=== PATIENT | male | born 2000 | race Caucasian/White ===

== ENCOUNTER 2019-07-08 01:05 | Emergency (ER) | payer OTHER, MEDICAID ==
[2019-07-08 02:51] LABS: ABS Lymphocytes 1.5 10^3/ul (1.0-4.8); ABS Monocytes 0.6 10^3/ul (0-0.8); Eosinophil % 0.4 %; Hematocrit 50 % (42-52); Hemoglobin 17.2 g/dL (14.0-18.0); Lymphocyte % 16.7 %; Mean Corpuscular HGB Conc 34 g/dL (31-36); Mean Corpuscular Hemoglobin 29 pg (27-31); Mean Corpuscular Volume 85 fL (80-94); Mean Platelet Volume 9.8 fL (7.4-10.4); Nucleated Red Blood Cells % 0.1; Platelet Count 199 10^3/uL (150-450); Red Cell Distribution Width 14 % (10-15); White Blood Count 9.2 10^3/uL (3.5-10.8)
[2019-07-08 03:08] LABS: Albumin 4.9 g/dL (3.2-5.2); Albumin/Globulin Ratio 1.8 (1-3); BUN/Creatinine Ratio 15.2 (8-20); Calcium 9.5 mg/dL (8.6-10.3); EGFR African American 128.2 (>60); Globulin 2.7 g/dL (2-4); Potassium 3.7 mmol/L (3.5-5.0); Total Bilirubin 1.6 mg/dL (0.2-1.0); Total Protein 7.6 g/dL (6.4-8.9)
--- NOTE | 2019-07-08 03:49 | ED ---
HPI Chest Pain - HPI Summary HPI Summary: 18 year old M presenting to [facility] complains of chest pain described as tightness rated 3/10 in severity since 21:00 today while lying in bed. Denies fever, cough, nausea, vomiting, diarrhea. Patient states he is not anxious or feeling sick. Symptoms aggravated by inspiration and upright position. Symptoms alleviated by putting pressure on his left chest. Patient states he does not take any medications. PMHx: asthma, dilated aortic root (both as a young child) . Denies alcohol, drugs, and smoking. Fhx: cancer. - History of Current Complaint Chief Complaint: EDChestPainROMI Time Seen by Provider: 07/08/19 02:51 Hx Obtained From: Patient Onset/Duration: Started Hours Ago, Still Present Timing: Constant Current Severity: Mild Pain Intensity: 3 Pain Scale Used: 0-10 Numeric Character: Tightness Aggravating Factor(s): Other: - inspiration and upright position Associated Signs and Symptoms: Positive: Negative - fever, cough, nausea, vomiting, diarrhea - Allergy/Home Medications Allergies/Adverse Reactions: Allergies Allergy/AdvReac Type Severity Reaction Status Date / Time No Known Allergies Allergy Verified 07/08/19 03:11 Home Medications: Home Medications NK [No Home Medications Reported] 07/08/19 [History Confirmed 07/08/19] PMH/Surg Hx/FS Hx/Imm Hx Cardiovascular History: Reports: Other Cardiovascular Problems/Disorders - dilated aortic root Respiratory History: Reports: Hx Asthma Infectious Disease History: No Infectious Disease History: Denies: Traveled Outside the [place] in Last 30 Days - Family History Known Family History: Positive: Other - cancer - Social History Alcohol Use: None Hx Substance Use: No Substance Use Type: Reports: None Hx Tobacco Use: No Smoking Status (MU): Never Smoked Tobacco Review of Systems - ROS Summary Review of Systems Summary: Home Medications Medication Instructions Recorded Confirmed Type NK [No Home Medications Reported] 07/08/19 07/08/19 History Negative: Fever Positive: Chest Pain Negative: Cough Negative: Vomiting, Diarrhea, Nausea All Other Systems Reviewed And Are Negative: Yes Physical Exam - Summary Physical Exam Summary: General: Well-developed, Well-nourished MALE. No acute distress. HEENT: Normocephalic, Atraumatic. Eyes: Conjuctiva normal, PERRL. Ears: TMs within normal limits. Nares: (-) discharge, (-) erythema. Oropharynx: Clear, mucous membranes moist, (-) exudates. Neck: Soft, FROM, (-) lymphadenopathy, (-) thyromegaly, (-) JVD. Cardiovascular: Normal sinus rhythm, (-) murmur. Lungs: Clear to auscultation bilaterally (-) wheezes, (-) rales, (-) rhonchi. Abdomen: Soft, non-tender, non-distended, (-) organomegaly, normal bowel sounds. Back: (-) CVA tenderness Extremities: No edema. Skin: Warm, dry, (-) rash. Neuro: Alert and oriented x3, no focal deficits. Psychiatric: Mood normal, affect normal. Triage Information Reviewed: Yes Vital Signs On Initial Exam: Initial Vitals Temp Pulse Resp BP Pulse Ox 99.1 F 101 18 142/95 99 07/08/19 01:11 07/08/19 01:11 07/08/19 01:11 07/08/19 01:11 07/08/19 01:11 Vital Signs Reviewed: Yes Diagnostics - Vital Signs Vital Signs Temp Pulse Resp BP Pulse Ox 07/08/19 01:11 99.1 F 101 18 142/95 99 - Laboratory Lab Results: Lab Results 07/08/19 07/08/19 07/08/19 Range/Units 02:44 02:44 02:44 WBC 9.2 (3.5-10.8) 10^3/uL RBC 5.90 H (4.18-5.48) 10^6 /uL Hgb 17.2 (14.0-18.0) g/dL Hct 50 (42-52) % MCV 85 (80-94) fL MCH 29 (27-31) pg MCHC 34 (31-36) g/dL RDW 14 (10-15) % Plt Count 199 (150-450) 10^3/uL MPV 9.8 (7.4-10.4) fL Neut % (Auto) 76.3 % Lymph % (Auto) 16.7 % [place] % (Auto) 6.4 % Eos % (Auto) 0.4 % Baso % (Auto) 0.2 % Absolute Neuts (auto) 7.0 (1.5-7.7) 10^3/ul Absolute Lymphs (auto) 1.5 (1.0-4.8) 10^3/ul Absolute Monos (auto) 0.6 (0-0.8) 10^3/ul Absolute Eos (auto) 0.0 (0-0.6) 10^3/ul Absolute Basos (auto) 0.0 (0-0.2) 10^3/ul Absolute Nucleated RBC 0.0 10^3/ul Nucleated RBC % 0.1 INR (Anticoag Therapy) 1.00 (0.82-1.09) D-Dimer, Quantitative < 200 (Less Than 230) ng/mL Sodium 140 (135-145) mmol/L Potassium 3.7 (3.5-5.0) mmol/L Chloride 108 (101-111) mmol/L Carbon Dioxide 26 (22-32) mmol/L Anion Gap 6 (2-11) mmol/L BUN 14 (6-24) mg/dL Creatinine 0.92 (0.67-1.17) mg/dL Est GFR ( Amer) 128.2 (>60) Est GFR (Non-Af Amer) 106.0 (>60) BUN/Creatinine Ratio 15.2 (8-20) Glucose 123 H (70-100) mg/dL Calcium 9.5 (8.6-10.3) mg/dL Total Bilirubin 1.60 H (0.2-1.0) mg/dL AST 17 (13-39) U/L ALT 15 (7-52) U/L Alkaline Phosphatase 57 (34-104) U/L Troponin I 0.00 (<0.04) ng/mL Total Protein 7.6 (6.4-8.9) g/dL Albumin 4.9 (3.2-5.2) g/dL Globulin 2.7 (2-4) g/dL Albumin/Globulin Ratio 1.8 (1-3) Result Diagrams: 07/08/19 02:44 07/08/19 02:44 Lab Statement: Any lab studies that have been ordered have been reviewed, and results considered in the medical decision making process. - Radiology CXR Radiology Interpretation Completed By: ED Physician Summary of Radiographic Findings: No acute process. Pending official report - EKG 0108 Cardiac Rate: Tachycardia - 102 BPM EKG Rhythm: Sinus Tachycardia Summary of EKG Findings: EKG at 01:08 reveals normal sinus tachycardia with rate of 102 BPM, no acute changes, no ischemic changes. This EKG was reviewed and interpreted by Dr. Vega. Re-Evaluation - Re-Evaluation First Eval Re-Evaluation Time: 05:23 Comment: I have discussed results with the patient and his symptoms have resolved. Discussed symptoms that warrant immediate return to ED Chest Pain Course/Dx - Course Course Of Treatment: 18 year old M presenting to [facility] complains of chest pain described as tightness rated 3/10 in severity since 21:00 today while lying in bed. Physical exam findings: unremarkable. EKG at 01:08 reveals normal sinus tachycardia with rate of 102 BPM, no acute changes, no ischemic changes. This EKG was reviewed and interpreted by Dr. Vega. CXR shows no acute process. Bloodwork results with no significant abnormalities except for RBC 5.90, glucose 123, and total bilirubin 1.60. The patient will be discharged home with recommendations to use ibuprofen and ice to manage the pain. He was instructed to follow up with [facility] in 3 days. Patient was instructed to return to Emergency Department for new or worsening symptoms. Patient understands and is agreeable to this plan. - Diagnoses Provider Diagnoses: Chest pain Discharge ED - Sign-Out/Discharge Documenting (check all that apply): Patient Departure - Discharge Patient Received Moderate/Deep Sedation with Procedure: No - Discharge Plan Condition: Stable Disposition: HOME Patient Education Materials: Chest Pain (ED) Referrals: Care [facility] [Outside] - 3 Days Additional Instructions: Use ibuprofen and ice. Please follow up with [facility] within 3 days. Please return to Emergency Department for any new or worsening symptoms - Billing Disposition and Condition Condition: STABLE Disposition: Home - Attestation Statements Document Initiated by Scribe: Yes Documenting Scribe: Irina Robert Provider For Whom Jon is Documenting (Include Credential): Mayela Vega MD Scribe Attestation: Irina Núñez, scribed for Mayela Vega MD on 07/08/19 at 05. Scribe Documentation Reviewed: Yes Provider Attestation: The documentation as recorded by the Irina arteaga accurately reflects the service I personally performed and the decisions made by me, Mayela Vega MD Status of Scribe Document: Viewed
[2019-07-08 05:30] VITALS: BP 120/72
== END 2019-07-08 05:28 | disposition home or self-care (01) ==
LOC: ED 01:05
DX: R07.9 Chest pain, unspecified (principal)
CPT/HCPCS: 36415; 71045; 80053; 84484; 85025; 85379; 85610; 93005; 99282